=== PATIENT | male | born 1980 | race Caucasian/White ===

== ENCOUNTER 2016-10-24 14:35 | Emergency (ER) | payer OTHER ==
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
[2016-10-24 19:54] VITALS: BP 123/70
== END 2016-10-24 19:54 | disposition home or self-care (01) ==
LOC: ER 14:35
DX: S09.90XA Unspecified injury of head, initial encounter (principal); S16.1XXA Strain of muscle, fascia and tendon at neck level, initial encounter; R11.10 Vomiting, unspecified; V49.9XXA Car occupant (driver) (passenger) injured in unspecified traffic accident, initial encounter; F17.200 Nicotine dependence, unspecified, uncomplicated; Z87.820 Personal history of traumatic brain injury
CPT/HCPCS: 70450; 72125; 99283

== ENCOUNTER 2017-08-22 17:15 | Emergency (ER) | payer OTHER ==
--- NOTE | 2017-08-22 17:35 | ER Document Report ---
ED Medical Screen (RME) - General Chief Complaint: Suicidal Ideation Stated Complaint: SUICIDAL IDEATION Time Seen by Provider: 08/22/17 17:34 Notes: Patient states that he is having thoughts of wanting to kill himself. He states he has tried to do this several times before. He states he always come to the hospital before he gets to the point where he feels at the point of no return. He states he does not own any weapons. He denies any hallucinations. TRAVEL OUTSIDE OF THE [place] IN LAST 30 DAYS: No - Related Data Allergies/Adverse Reactions: No Known Allergies Allergy (Verified 08/22/17 17:19) Home Medications: Current Home Medications No Home Medications 08/22/17 [History] Past Medical History - Social History Frequency of alcohol use: None Drug Abuse: Cocaine, Marijuana, Prescription drugs Renal/ Medical History: Denies: Hx Peritoneal Dialysis Psychiatric Medical History: Reports: Hx Bipolar Disorder, Hx Depression, Hx Post Traumatic Stress Disorder Traumatic Medical History: Reports: Hx Traumatic Brain Injury Past Surgical History: Reports: Hx Orthopedic Surgery Physical Exam - Vital signs Vitals: Temp Pulse Resp BP Pulse Ox 99.4 F 95 16 139/90 H 97 08/22/17 17:19 08/22/17 17:19 08/22/17 17:19 08/22/17 17:19 08/22/17 17:19 Course - Vital Signs Vital signs: Temp Pulse Resp BP Pulse Ox 99.4 F 95 16 139/90 H 97 08/22/17 17:19 08/22/17 17:19 08/22/17 17:19 08/22/17 17:19 08/22/17 17:19
[2017-08-22 18:35] LABS: ABSOLUTE BASOPHILS # (AUTO) 0.1 10^3/uL (0.0-0.2); ABSOLUTE EOSINOPHILS # (AUTO) 0.2 10^3/uL (0.0-0.6); ABSOLUTE LYMPHOCYTES (AUTO) 2.3 10^3/uL (0.5-4.7); ABSOLUTE MONOCYTES (AUTO) 0.9 10^3/uL (0.1-1.4); ABSOLUTE NEUT (AUTO) 4.6 10^3/uL (1.7-8.2); BASOPHILS % (AUTO) 1.1 % (0-2); EOSINOPHILS % (AUTO) 2.1 % (0-6); HEMATOCRIT 48.3 % (37.9-51.0); HEMOGLOBIN 16.7 g/dL (13.5-17.0); HGB HCT DIFFERENCE 1.8; LYMPHOCYTES % (AUTO) 28.7 % (13-45); MEAN CORPUSCULAR HEMOGLOBIN 31.1 pg (27.0-33.4); MEAN CORPUSCULAR HGB CONC 34.6 g/dL (32.0-36.0); MEAN CORPUSCULAR VOLUME 90 fl (80-97); MONOCYTES % (AUTO) 10.8 % (3-13); RED BLOOD COUNT 5.39 10^6/uL (4.35-5.55); RED CELL DISTRIBUTION WIDTH 12.5 % (11.5-14.0); SEGMENTED NEUTROPHILS % (AUTO) 57.3 % (42-78)
[2017-08-22] MEDS ORDERED: HALOPERIDOL 5 MG TABLET PO ONE (18:57)
[2017-08-22 18:58] LABS: ALANINE AMINOTRANSFERASE 27 U/L (21-72); ALBUMIN 4.9 g/dL (3.5-5.0); ALKALINE PHOSPHATASE 84 U/L (38-126); ANION GAP 14 (5-19); ASPARTATE AMINO TRANSFERASE 24 U/L (17-59); BILIRUBIN,DIRECT 0.4 mg/dL (0.0-0.4); BILIRUBIN,TOTAL 0.9 mg/dL (0.2-1.3); BLOOD UREA NITROGEN 16 mg/dL (7-20); CALCIUM 9.8 mg/dL (8.4-10.2); CARBON DIOXIDE 30 mmol/L (22-30); CHLORIDE 101 mmol/L (98-107); CREATININE RESULT 1.13 mg/dL (0.52-1.25); GLUCOSE 95 mg/dL (75-110); POTASSIUM 4.2 mmol/L (3.6-5.0); SODIUM 144.9 mmol/L (137-145); TOTAL PROTEIN 8.2 g/dL (6.3-8.2)
[2017-08-22 19:01] LABS: ALCOHOL < 10 mg/dL (NONE DETECTED)
--- NOTE | 2017-08-22 19:01 | ER Document Report ---
ED Psych Disorder / Suicide - General Chief Complaint: Suicidal Ideation Stated Complaint: SUICIDAL IDEATION Time Seen by Provider: 08/22/17 17:34 Notes: The patient is a 37-year-old male, past medical history severe depression, presents with thoughts of wanting to kill himself. He has not unable to sleep for 3 days and has been on a cocaine, Percocet and Xanax binge. He has had thoughts of hurting himself several times before, but he has always gone to the hospital prior to actually attempting any suicide. He does not own any weapons does not have hallucinations. Patient is not on any current medications, but has been on multiple psychiatric medications in the past. He denies fevers, neck stiffness, chest pain, shortness of breath, nausea, vomiting, abdominal pain or back pain. TRAVEL OUTSIDE OF THE [place] IN LAST 30 DAYS: No - Related Data Allergies/Adverse Reactions: No Known Allergies Allergy (Verified 08/22/17 17:19) Home Medications: Current Home Medications No Home Medications 08/22/17 [History] Past Medical History - General Information source: Patient - Social History Smoking Status: Current Every Day Smoker Frequency of alcohol use: None Drug Abuse: Cocaine, Marijuana, Prescription drugs Family History: Reviewed & Not Pertinent Patient has suicidal ideation: Yes Patient has homicidal ideation: No Renal/ Medical History: Denies: Hx Peritoneal Dialysis Psychiatric Medical History: Reports: Hx Bipolar Disorder, Hx Depression, Hx Post Traumatic Stress Disorder Traumatic Medical History: Reports: Hx Traumatic Brain Injury Past Surgical History: Reports: Hx Orthopedic Surgery Review of Systems - Review of Systems Notes: REVIEW OF SYSTEMS: CONSTITUTIONAL: -fevers, -chills EENT: -eye pain, -difficulty swallowing, -nasal congestion CARDIOVASCULAR:-chest pain, -syncope. RESPIRATORY: -cough, -SOB GASTROINTESTINAL: -abdominal pain, - nausea, -vomiting, -diarrhea GENITOURINARY: -dysuria, -hematuria MUSCULOSKELETAL: -back pain, -neck pain SKIN: -rash or skin lesions. HEMATOLOGIC: -easy bruising or bleeding. LYMPHATIC: -swollen, enlarged glands. NEUROLOGICAL: -altered mental status or loss of consciousness, -headache, - neurologic symptoms PSYCHIATRIC: -anxiety, +depression, +SI ALL OTHER SYSTEMS REVIEWED AND NEGATIVE. Physical Exam - Vital signs Vitals: Temp Pulse Resp BP Pulse Ox 99.4 F 95 16 139/90 H 97 08/22/17 17:19 08/22/17 17:19 08/22/17 17:19 08/22/17 17:19 08/22/17 17:19 - Notes Notes: PHYSICAL EXAMINATION: GENERAL: Well-appearing, well-nourished and in no acute distress. HEAD: Atraumatic, normocephalic. EYES: Pupils equal round and reactive to light, extraocular movements intact, sclera anicteric, conjunctiva are normal. ENT: nares patent, oropharynx clear without exudates. Moist mucous membranes. NECK: Normal range of motion, supple without lymphadenopathy LUNGS: Breath sounds clear to auscultation bilaterally and equal. No wheezes rales or rhonchi. HEART: Regular rate and rhythm without murmurs ABDOMEN: Soft, nontender, normoactive bowel sounds. No guarding, no rebound. No masses appreciated. EXTREMITIES: Normal range of motion, no pitting or edema. No cyanosis. NEUROLOGICAL: Cranial nerves grossly intact. Normal speech, normal gait. Normal sensory and motor exams. PSYCH: Depressed mood. SKIN: Warm, Dry, normal turgor, no rashes or lesions noted. Course - Re-evaluation Re-evalutation: 08/22/17 19:00 Pt in the ER with his . He is expressing suicidal thoughts after 3 days not be able to sleep and polysubstance abuse. He agrees to stay in the ER to talk to mental health in the morning. Will provide p.o. Haldol to help some of his symptoms. - Vital Signs Vital signs: Temp Pulse Resp BP Pulse Ox 99.4 F 95 16 139/90 H 97 08/22/17 17:19 08/22/17 17:19 08/22/17 17:19 08/22/17 17:19 08/22/17 17:19 - Laboratory Result Diagrams: 08/22/17 18:14 08/22/17 18:14 Discharge - Discharge Clinical Impression: Suicidal thoughts, Polysubstance abuse Condition: Stable Disposition: PSYCH HOSP/UNIT
--- NOTE | 2017-08-22 21:08 | EKG REPORT ---
SEVERITY:- OTHERWISE NORMAL ECG - SINUS ARRHYTHMIA, RATE [id number] : Confirmed by: Arabella Pepe MD 22-Aug-2017 21:08:12
[2017-08-22] MEDS ORDERED: DIPHENHYDRAMINE HCL 50 MG CAPSULE PO ONE (22:40)
[2017-08-22] MEDS ORDERED: ACETAMINOPHEN 325 MG TABLET PO ONE (23:57)
[2017-08-23] MEDS ORDERED: LORAZEPAM INJ 2 MG/1 ML VIAL IM ONE (00:22)
[2017-08-23 08:14] LABS: APPEARANCE,URINE CLEAR; BILIRUBIN,URINE NEGATIVE (NEGATIVE); GLUCOSE, URINE NEGATIVE (NEGATIVE); KETONES,URINE NEGATIVE (NEGATIVE); LEUKOCYTE ESTERASE,URINE NEGATIVE (NEGATIVE); NITRITE,URINE NEGATIVE (NEGATIVE); PROTEIN,URINE 30 mg/dL (NEGATIVE); URINE SPECIFIC GRAVITY 1.034; UROBILINOGEN,URINE NEGATIVE mg/dL (<2.0)
[2017-08-23 08:29] LABS: URINE BARBITURATES SCREEN NEGATIVE; URINE METHADONE SCREEN NEGATIVE; URINE OPIATES LOW NEGATIVE; URINE PHENCYCLIDINE SCREEN NEGATIVE
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
[2017-08-23] MEDS ORDERED: ACETAMINOPHEN 325 MG TABLET PO ONE (13:29)
[2017-08-23] MEDS ORDERED: FLUOXETINE HCL 20 MG CAPSULE PO ONE (14:57)
[2017-08-23] MEDS ORDERED: OLANZAPINE 5 MG TABLET PO SCH (18:00)
[2017-08-23] MEDS ORDERED: BUSPIRONE HCL 10 MG TABLET PO SCH (18:00)
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
[2017-08-23] MEDS ORDERED: LIDOCAINE 5% (700 MG) TRANSDERMAL ADH..PATCH TP ONE (20:35)
[2017-08-23 21:20] VITALS: BP 135/74
[2017-08-23] MEDS ORDERED: CLONIDINE HCL 0.1 MG TABLET PO SCH (22:00)
== END 2017-08-24 00:41 ==
LOC: ER 17:15
DX: R45.851 Suicidal ideations (principal); F19.10 Other psychoactive substance abuse, uncomplicated; F32.9 Major depressive disorder, single episode, unspecified; Z79.899 Other long term (current) drug therapy; F17.200 Nicotine dependence, unspecified, uncomplicated
CPT/HCPCS: 36415; 80053; 80307; 81001; 85025; 93005; 93010; 96372; 99285

== ENCOUNTER 2017-08-26 15:08 | Emergency (ER) | payer SELFPAY ==
--- NOTE | 2017-08-26 16:49 | ER Document Report ---
ED Psych Disorder / Suicide <ROXANA STARR - Last Filed: 08/26/17 17:36> - General TRAVEL OUTSIDE OF THE [place] IN LAST 30 DAYS: No - HPI Patient complains to provider of: No: Aggression, Agitated, Bizarre behavior, Hallucinating, Homicidal ideation, Homicidal plan, Homicidal attempt, Overdose, Suicidal ideation, Suicidal plan, Suicidal attempt, Self injury, Other Quality of pain: No pain Pain Level: Denies <SUKI SHEA - Last Filed: 08/26/17 17:46> - General Chief Complaint: Psych Problem Stated Complaint: PSYCHE EVAL Time Seen by Provider: 08/26/17 15:54 Notes: This is a 37-year-old male that I saw the other day for mental health evaluation. Apparently after I left patient decided to walk out of the ER as well. Patient was on involuntary commitment paperwork. Has been at home. Please inform him that he was on papers and they can either bring him in by police vehicle or he could come in by himself. Decided to come on in. States that he is no longer suicidal, homicidal, angry or any other complaints. States that he has been off of the narcotics now for approximately 4 days and feels much better. Admits to having a history of bipolar disorder. Does not like the way it makes him feel when he is on mood stabilizers but realizes that he may need to be on them. States that he has a follow-up scheduled for Monday at the [facility] in [facility]. Is going to get him involved in drug and alcohol treatment program as well as counseling. Does not feel like he needs to be here but is cooperative at this time. (SUKI SHEA) - Related Data Allergies/Adverse Reactions: No Known Allergies Allergy (Verified 08/26/17 15:33) Home Medications: Current Home Medications Alprazolam [Xanax 0.25 mg Tablet] 0.25 mg PO Q12 08/26/17 [History] Past Medical History - General Information source: Patient - Social History Smoking Status: Current Every Day Smoker Cigarette use (# per day): Yes Frequency of alcohol use: Occasional Drug Abuse: Cocaine, Marijuana Lives with: Spouse/Significant other Family History: Reviewed & Not Pertinent Renal/ Medical History: Denies: Hx Peritoneal Dialysis Psychiatric Medical History: Reports: Hx Bipolar Disorder, Hx Depression, Hx Post Traumatic Stress Disorder Traumatic Medical History: Reports: Hx Traumatic Brain Injury Past Surgical History: Reports: Hx Orthopedic Surgery <SUKI SHEA - Last Filed: 08/26/17 17:46> Review of Systems - Review of Systems Constitutional: No symptoms reported EENT: No symptoms reported Cardiovascular: No symptoms reported Respiratory: No symptoms reported Gastrointestinal: No symptoms reported Genitourinary: No symptoms reported Male Genitourinary: No symptoms reported Musculoskeletal: No symptoms reported Skin: No symptoms reported Hematologic/Lymphatic: No symptoms reported Neurological/Psychological: No symptoms reported <SANTIAGO SHEAIC Gelacio - Last Filed: 08/26/17 17:46> Physical Exam - Vital signs Interpretation: Normal - General General appearance: Appears well, Alert - HEENT Head: Normocephalic, Atraumatic Eyes: Normal Pupils: PERRL - Respiratory Respiratory status: No respiratory distress Chest status: Nontender Breath sounds: Normal Chest palpation: Normal - Cardiovascular Rhythm: Regular Heart sounds: Normal auscultation Murmur: No - Abdominal Inspection: Normal Distension: No distension Bowel sounds: Normal Tenderness: Nontender Organomegaly: No organomegaly - Back Back: Normal, Nontender - Extremities General upper extremity: Normal inspection, Nontender, Normal color, Normal ROM , Normal temperature General lower extremity: Normal inspection, Nontender, Normal color, Normal ROM , Normal temperature, Normal weight bearing. No: Ken's sign - Neurological Neuro grossly intact: Yes Cognition: Normal Orientation: AAOx4 Char Coma Scale Eye Opening: Spontaneous [place] Coma Scale Verbal: Oriented [place] Coma Scale Motor: Obeys Commands [place] Coma Scale Total: 15 Speech: Normal Motor strength normal: LUE, RUE, LLE, RLE Sensory: Normal - Psychological Associated symptoms: Normal affect, Normal mood - Skin Skin Temperature: Warm Skin Moisture: Dry Skin Color: Normal <SUKI SHEA - Last Filed: 08/26/17 17:46> - Vital signs Vitals: Temp Pulse Resp BP Pulse Ox 98.2 F 75 16 147/79 H 98 08/26/17 15:26 08/26/17 15:26 08/26/17 15:26 08/26/17 15:26 08/26/17 15:26 Course - Laboratory Result Diagrams: 08/26/17 17:10 08/26/17 17:10 <ROXANA STARR Last Filed: 08/26/17 17:36> - Laboratory Result Diagrams: 08/26/17 17:10 08/26/17 17:10 <SUKI SHEA - Last Filed: 08/26/17 17:46> - Re-evaluation Re-evalutation: 08/26/17 16:48 Patient is well-appearing in no acute distress at this time. And currently in my professional opinion I do not think the patient meets criteria for involuntary commission. Patient has give me a clear plan of action of his treatment course. Realizes the ramifications of his drug and alcohol abuse. Is not suicidal or homicidal. Seems to have a rather to believe stable mood at this time. We will have mental health evaluate patient as well but in my opinion patient is safe to go home at this time. 08/26/17 17:18 Mental health team is seen patient. Recommend resending IVC paperwork at this time. I concur. Will DC at this time. (SUKI SHEA) - Vital Signs Vital signs: Temp Pulse Resp BP Pulse Ox 98.2 F 74 16 147/79 H 98 08/26/17 15:26 08/26/17 15:45 08/26/17 15:26 08/26/17 15:26 08/26/17 15:26 - Laboratory Laboratory results interpreted by me: 08/26/17 16:58 Urine Ascorbic Acid 20 H Discharge <ROXANA STARR - Last Filed: 08/26/17 17:36> <SUKI SHEA - Last Filed: 08/26/17 17:46> - Discharge Clinical Impression: Substance abuse, Posttraumatic stress disorder, Polysubstance abuse, Suicidal thoughts Condition: Stable Disposition: HOME, SELF-CARE Additional Instructions: SUICIDAL IDEATION: Suicidal ideation is a common medical term for thoughts about suicide, which may be as detailed as a formulated plan, without the suicidal act itself. Although most people who undergo suicidal ideation do not commit suicide, some go on to make suicide attempts. The range of suicidal ideation varies greatly from fleeting to detailed planning, role playing, and unsuccessful attempts. While thoughts about suicide are common, most people do not carry out serious actions to commit suicide. Based upon your evaluation and discussion with you, we do not believe you are currently at risk to act upon your thoughts of suicide. You have agreed to return to the Emergency Department, at any time , if you feel inclined to act upon your suicidal thoughts. HOMICIDAL IDEATION: Homicidal ideation is a common medical term for thoughts about homicide, which may be as detailed as a formulated plan, without the homicidal act itself. Although most people who undergo homicidal ideation do not commit homicide, some go on to make homicide attempts. The range of homicidal ideation varies greatly from fleeting to detailed planning, role playing, and unsuccessful attempts. While thoughts about homicide are common, most people do not carry out serious actions to commit homicide. Based upon your evaluation and discussion with you , we do not believe you are currently at risk to act upon your thoughts of homicide. You have agreed to return to the Emergency Department, at any time, if you feel inclined to act upon your homicidal thoughts. Bipolar Disorder: Some of these symptoms and expressed behaviors are seen with PTSD Bipolar disorder is also called manic-depressive disorder. Depression alternates with brain hyperactivity called alia. Each phase lasts from several days to a few weeks. We don't know exactly what causes bipolar disorder , but it's treatable. During the "manic phase," you may feel elated and energetic. You may have racing thoughts, rapid speech, increased activity, and grandiose ideas. During this time, you may not realize how poor your judgement is. Inappropriate spending, drug abuse, excessive alcohol use, marriage problems, and irresponsible sexual behavior are common during the manic phase. During the "depressive phase," you might feel depressed, guilty, worthless , fatigued, and unable to concentrate. You might have thoughts of suicide. Good treatments are available for bipolar disorder. [place] is a classic drug for bipolar disorder, and is still often useful. If the manic phase is very mild, an antidepressant alone can be prescribed. If the manic phase is very severe, an antipsychotic medicine (such as Haldol) may be needed. The treatment must be matched to your symptoms, so it's important to work closely with your psychiatric care provider. Contact your physician, the hospital emergency center, crisis line, or your counsellor if you are losing control or having self-destructive thoughts. COCAINE ABUSE: Cocaine causes many dangerous medical problems. Problems can occur even with "usual" amounts. Cocaine affects judgement, creating a sense of invulnerability. Cocaine users often make bad decisions that seem "great" at the time. Most cocaine users eventually will be hurt by bad job performance, damaged personal relations, crime, and unsafe sexual practices. Toxic effects of cocaine can include seizures, hallucinations, delusions, high blood pressure, heart damage, or sudden . There's always the risk of a "bad batch." But heart attacks, brain hemorrhages, or cardiac arrest can occur unpredictably even with "normal" use. Injection of cocaine is risky for abscesses, endocarditis (heart infection) , pneumonia, and AIDS. Withdrawal from cocaine often causes anxiety and drug cravings. Some users become paranoid and psychotic. Many treatment programs are available, but you must make the decision to quit. Medication can be prescribed to control the symptoms of cocaine toxicity (beta blockers or benzodiazepines). Withdrawal symptoms may require tranquilizers. FOLLOW-UP CARE: If you have been referred to the [facility] as a walk in first thing Monday (08/28/2017) morning. The [facility] team obtained verbal consent and it is continuity of care to provide the [facility] with information regarding this visit. Left a voice mail for Ely, one of the nurses at the [facility] for care coordination. If you experience worsening or a significant change in your symptoms, notify the physician immediately, call either of the mobile crisis numbers or return to the Emergency Department at any time for re-evaluation. Referrals: [facility] [Provider Group] - 08/28/17 9:00 am
[2017-08-26 17:44] LABS: ABSOLUTE BASOPHILS # (AUTO) 0.1 10^3/uL (0.0-0.2); ABSOLUTE EOSINOPHILS # (AUTO) 0.1 10^3/uL (0.0-0.6); ABSOLUTE LYMPHOCYTES (AUTO) 2.7 10^3/uL (0.5-4.7); ABSOLUTE MONOCYTES (AUTO) 0.7 10^3/uL (0.1-1.4); ABSOLUTE NEUT (AUTO) 3.9 10^3/uL (1.7-8.2); BASOPHILS % (AUTO) 1.1 % (0-2); HEMATOCRIT 42.3 % (37.9-51.0); HEMOGLOBIN 14.7 g/dL (13.5-17.0); HGB HCT DIFFERENCE 1.8; MEAN CORPUSCULAR HEMOGLOBIN 31.4 pg (27.0-33.4); MEAN CORPUSCULAR HGB CONC 34.7 g/dL (32.0-36.0); MEAN CORPUSCULAR VOLUME 90 fl (80-97); MONOCYTES % (AUTO) 9.7 % (3-13); RED BLOOD COUNT 4.68 10^6/uL (4.35-5.55); RED CELL DISTRIBUTION WIDTH 12.5 % (11.5-14.0); SEGMENTED NEUTROPHILS % (AUTO) 51.2 % (42-78); WHITE BLOOD COUNT 7.5 10^3/uL (4.0-10.5)
[2017-08-26 17:45] LABS: APPEARANCE,URINE CLEAR; BILIRUBIN,URINE NEGATIVE (NEGATIVE); GLUCOSE, URINE NEGATIVE (NEGATIVE); KETONES,URINE NEGATIVE (NEGATIVE); LEUKOCYTE ESTERASE,URINE NEGATIVE (NEGATIVE); NITRITE,URINE NEGATIVE (NEGATIVE); PROTEIN,URINE NEGATIVE (NEGATIVE); URINE SPECIFIC GRAVITY 1.018; UROBILINOGEN,URINE NEGATIVE mg/dL (<2.0)
[2017-08-26 17:59] LABS: URINE BARBITURATES SCREEN NEGATIVE; URINE METHADONE SCREEN NEGATIVE; URINE OPIATES LOW NEGATIVE; URINE PHENCYCLIDINE SCREEN NEGATIVE
[2017-08-26 18:02] LABS: ALANINE AMINOTRANSFERASE 31 U/L (21-72); ALBUMIN 4.4 g/dL (3.5-5.0); ALKALINE PHOSPHATASE 76 U/L (38-126); ANION GAP 12 (5-19); ASPARTATE AMINO TRANSFERASE 23 U/L (17-59); BILIRUBIN,DIRECT 0.4 mg/dL (0.0-0.4); BILIRUBIN,TOTAL 0.6 mg/dL (0.2-1.3); BLOOD UREA NITROGEN 14 mg/dL (7-20); CALCIUM 9.3 mg/dL (8.4-10.2); CARBON DIOXIDE 31 mmol/L (22-30); CHLORIDE 104 mmol/L (98-107); CREATININE RESULT 0.95 mg/dL (0.52-1.25); GLUCOSE 86 mg/dL (75-110); POTASSIUM 4.1 mmol/L (3.6-5.0); SODIUM 146.6 mmol/L (137-145); TOTAL PROTEIN 7.3 g/dL (6.3-8.2)
[2017-08-26 18:03] LABS: ALCOHOL < 10 mg/dL (NONE DETECTED)
[2017-08-26 18:07] VITALS: BP 149/91
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
--- NOTE | 2017-08-28 06:02 | EKG REPORT ---
SEVERITY:- NORMAL ECG - SINUS RHYTHM : Confirmed by: Arabella Pepe MD 28-Aug-2017 06:02:17
== END 2017-08-26 18:07 | disposition home or self-care (01) ==
LOC: ER 15:08
DX: F43.10 Post-traumatic stress disorder, unspecified (principal); R45.851 Suicidal ideations; F19.10 Other psychoactive substance abuse, uncomplicated; F17.210 Nicotine dependence, cigarettes, uncomplicated; Z87.820 Personal history of traumatic brain injury
CPT/HCPCS: 36415; 80053; 80307; 81001; 85025; 93005; 93010; 99285

== ENCOUNTER 2019-02-05 11:37 | Emergency (ER) | payer OTHER ==
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
[2019-02-05 12:42] LABS: APPEARANCE,URINE CLEAR; BILIRUBIN,URINE NEGATIVE (NEGATIVE); COLOR,URINE YELLOW; GLUCOSE, URINE NEGATIVE (NEGATIVE); KETONES,URINE NEGATIVE (NEGATIVE); LEUKOCYTE ESTERASE,URINE NEGATIVE (NEGATIVE); NITRITE,URINE NEGATIVE (NEGATIVE); PROTEIN,URINE NEGATIVE (NEGATIVE); UROBILINOGEN,URINE NEGATIVE mg/dL (<2.0)
[2019-02-05 12:45] LABS: ABSOLUTE LYMPHOCYTES (AUTO) 1.9 10^3/uL (0.5-4.7); ABSOLUTE MONOCYTES (AUTO) 0.5 10^3/uL (0.1-1.4); ABSOLUTE NEUT (AUTO) 5.8 10^3/uL (1.7-8.2); BASOPHILS % (AUTO) 0.5 % (0-2); EOSINOPHILS % (AUTO) 0.3 % (0-6); HEMATOCRIT 43.7 % (37.9-51.0); HEMOGLOBIN 15.1 g/dL (13.5-17.0); LYMPHOCYTES % (AUTO) 22.9 % (13-45); MEAN CORPUSCULAR HEMOGLOBIN 31.1 pg (27.0-33.4); MEAN CORPUSCULAR HGB CONC 34.6 g/dL (32.0-36.0); MEAN CORPUSCULAR VOLUME 90 fl (80-97); MONOCYTES % (AUTO) 6.4 % (3-13); PLATELET COUNT 226 10^3/uL (150-450); RED BLOOD COUNT 4.87 10^6/uL (4.35-5.55); RED CELL DISTRIBUTION WIDTH 13.3 % (11.5-14.0); SEGMENTED NEUTROPHILS % (AUTO) 69.9 % (42-78); TOTAL CELLS COUNTED % (AUTO) 100 %; WHITE BLOOD COUNT 8.2 10^3/uL (4.0-10.5)
[2019-02-05 12:55] LABS: URINE AMPHETAMINES SCREEN NEGATIVE; URINE BARBITURATES SCREEN NEGATIVE; URINE BENZODIAZEPINES SCREEN NEGATIVE; URINE COCAINE SCREEN NEGATIVE; URINE MARIJUANA (THC) SCREEN UNCONFIRMED POSITIVE; URINE METHADONE SCREEN NEGATIVE; URINE PHENCYCLIDINE SCREEN NEGATIVE
[2019-02-05 13:05] LABS: ALANINE AMINOTRANSFERASE 41 U/L (21-72); ALBUMIN 4.4 g/dL (3.5-5.0); ALKALINE PHOSPHATASE 75 U/L (38-126); ANION GAP 8 (5-19); ASPARTATE AMINO TRANSFERASE 35 U/L (17-59); BILIRUBIN,DIRECT 0.3 mg/dL (0.0-0.4); BILIRUBIN,TOTAL 0.8 mg/dL (0.2-1.3); BLOOD UREA NITROGEN 9 mg/dL (7-20); CALCIUM 9.5 mg/dL (8.4-10.2); CARBON DIOXIDE 28 mmol/L (22-30); CHLORIDE 107 mmol/L (98-107); GLUCOSE 104 mg/dL (75-110); SODIUM 142.9 mmol/L (137-145); TOTAL PROTEIN 7.6 g/dL (6.3-8.2)
[2019-02-05 13:08] LABS: ACETAMINOPHEN < 10 ug/mL (10-30); ALCOHOL < 10 mg/dL (NONE DETECTED); SALICYLATE < 1.0 mg/dL (2.0-20.0)
[2019-02-05] MEDS ORDERED: DEXAMETHASONE SOD PHOS INJ 10 MG/1 ML VIAL IM ONE (14:11)
[2019-02-05] MEDS ORDERED: KETOROLAC TROMETHAMINE 60 MG/2 ML SDV IM ONE (14:11)
[2019-02-05] MEDS ORDERED: METHOCARBAMOL 750 MG TABLET PO ONE (14:11)
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
--- NOTE | 2019-02-05 15:23 | RADIOLOGY REPORT (SQ) ---
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 NUMBER OF VIEWS: Two views. TECHNIQUE: AP and lateral views of the orbits. LIMITATIONS: None. FINDINGS: ORBITS: No fracture. No foreign body. SINUSES: No mucosal thickening. No air fluid levels. FACIAL BONES: No fracture. OTHER: No other significant finding. IMPRESSION: NEGATIVE STUDY OF THE ORBITS. NO RADIO-OPAQUE FOREIGN BODY. THE PATIENT IS CLEARED FOR MRI SCANNING. TECHNICAL DOCUMENTATION: JOB ID: [id number] [employer]- All Rights Reserved Reading location - IP/workstation name: [email or web address]
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
[2019-02-05 16:37] VITALS: BP 130/80
--- NOTE | 2019-02-05 16:40 | RADIOLOGY REPORT (SQ) ---
EXAM DESCRIPTION: MRI LUMBAR SPINE WITHOUT COMPLETED DATE/TIME: 02/05/2019 4:29 pm REASON FOR STUDY: Low back pain right leg radiculopathy COMPARISON: None. TECHNIQUE: Sagittal and Axial imaging includes T1, T2, STIR and gradient echo sequences. Coronal T2/ HASTE imaging. LIMITATIONS: None. FINDINGS: VISUALIZED UPPER ABDOMEN: Limited evaluation. No acute or suspicious findings suggested. SEGMENTATION: No transitional anatomy. The lowest well-developed disc space is labeled L5-S1. ALIGNMENT: Anatomic. VERTEBRAE: Intact. BONE MARROW: Normal. No marrow replacement or reactive changes. DISC SIGNAL: Decreased T2 weighted intervertebral disc signal at L5-S1 POSTERIOR ELEMENTS: Generally intact. No pars defect evident. HARDWARE: None in the spine. CORD AND CONUS: Normal in size and signal intensity. Conus at the T12-L1 level. SOFT TISSUES: No aortic aneurysm seen. No bulky retroperitoneal adenopathy or mass. No paraspinal mas s or fluid. L1-L2: Mild bilateral facet and ligament hypertrophy. No disc protrusion or significant central or foraminal stenosis. L2-L3: Mild bilateral facet and ligament hypertrophy. No disc protrusion or significant central or f oraminal stenosis. L3-L4: Mild bilateral facet and ligament hypertrophy. No disc protrusion or significant central or f oraminal stenosis. L4-L5: Mild bilateral facet and ligament hypertrophy. No disc protrusion or significant central or f oraminal stenosis. L5-S1: Moderate-sized right paracentral disc herniation with extruded material extending inferiorly i n the rightward spinal canal. This flattens the right S1 nerve root as it exits the thecal sac on ax ial T2 images 35-37, and sagittal T2 images 6-8. Elsewhere at L5-S1, there is mild bilateral facet hypertrophy without central canal stenosis. Mild b ilateral inferior foraminal narrowing is present without exit L5 nerve root impingement. LOWER THORACIC: Incompletely imaged. No stenosis seen. SACRUM: Visualized upper sacrum intact. OTHER: No other significant findings. IMPRESSION: Moderate size right paracentral disc herniation at L5-S1, with extruded material extendi ng inferiorly in the rightward spinal canal. This flattens the right S1 nerve root in the lateral re cess TECHNICAL DOCUMENTATION: JOB ID: [id number] [employer]- All Rights Reserved Reading location - IP/workstation name: [email or web address]
--- NOTE | 2019-02-05 17:44 | EKG REPORT ---
SEVERITY:- ABNORMAL ECG - SINUS RHYTHM ABNRM R PROG, CONSIDER ASMI OR LEAD PLACEMENT : Confirmed by: Arabella Pepe MD 05-Feb-2019 17:42:46
== END 2019-02-05 17:11 | disposition left against medical advice (07) ==
LOC: ER 11:37
DX: F43.10 Post-traumatic stress disorder, unspecified (principal); R45.4 Irritability and anger; F12.20 Cannabis dependence, uncomplicated; R45.851 Suicidal ideations; G89.29 Other chronic pain; M54.9 Dorsalgia, unspecified; F17.200 Nicotine dependence, unspecified, uncomplicated; Z87.820 Personal history of traumatic brain injury
CPT/HCPCS: 93005; 99281; 96372; 36415; 80307 ×4; 85025; 80053; 81001; 72148; 70250; 93010; J1885; J3490; J1100

== ENCOUNTER 2019-03-07 15:35 | Emergency (ER) | payer OTHER ==
[2019-03-07 15:53] VITALS: BP 144/116
--- NOTE | 2019-03-07 16:07 | ER Document Report ---
ED Medical Screen (RME) - General Chief Complaint: Testicular Pain Stated Complaint: TESTICLE PAIN Time Seen by Provider: 03/07/19 15:40 Primary Care Provider: CHULA HOANG FNP [Primary Care Provider] - Follow up as needed Mode of Arrival: Ambulatory Information source: Patient Notes: Patient is a 38-year-old male presented to the emergency department chief complaint of left testicular pain. Patient reports pain has been going on for approximately 30 days. Patient initially thought he was having the pain because he had not had an ejaculation in quite some time. Patient reports he resolved this with his partner. He reports that the last 3 days the pain has returned and gotten significantly worse. He denies any swelling to the area. He does state the pain radiates over to the right testicle. Denies history of any direct trauma to the area. Patient is very tearful in triage stating that he hopes he has an STD and not a testicular torsion he has he wants to have another child with his new . Examination deferred until patient is in a room. I have greeted and performed a rapid initial assessment of this patient. A comprehensive ED assessment and evaluation of the patient, analysis of test results and completion of the medical decision making process will be conducted by additional ED providers. Dictation of this chart was performed using voice recognition software; therefore, there may be some unintended grammatical errors. TRAVEL OUTSIDE OF THE [place] IN LAST 30 DAYS: No - Related Data Allergies/Adverse Reactions: No Known Allergies Allergy (Verified 03/07/19 15:37) Past Medical History Renal/ Medical History: Denies: Hx Peritoneal Dialysis Psychiatric Medical History: Reports: Hx Bipolar Disorder, Hx Depression, Hx Post Traumatic Stress Disorder Traumatic Medical History: Reports: Hx Traumatic Brain Injury Past Surgical History: Reports: Hx Orthopedic Surgery Physical Exam - Vital signs Vitals: Temp Pulse Resp BP Pulse Ox 98.2 F 106 H 18 144/116 H 97 03/07/19 15:39 03/07/19 15:39 03/07/19 15:39 03/07/19 15:39 03/07/19 15:39 Course - Vital Signs Vital signs: Temp Pulse Resp BP Pulse Ox 98.2 F 106 H 18 144/116 H 97 03/07/19 15:39 03/07/19 15:39 03/07/19 15:39 03/07/19 15:39 03/07/19 15:39 Doctor's Discharge - Discharge Referrals: CHULA HOANG FNP [Primary Care Provider] - Follow up as needed
[2019-03-07 17:10] LABS: APPEARANCE,URINE CLEAR; BILIRUBIN,URINE NEGATIVE (NEGATIVE); COLOR,URINE YELLOW; GLUCOSE, URINE NEGATIVE (NEGATIVE); KETONES,URINE NEGATIVE (NEGATIVE); LEUKOCYTE ESTERASE,URINE NEGATIVE (NEGATIVE); NITRITE,URINE NEGATIVE (NEGATIVE); PROTEIN,URINE NEGATIVE (NEGATIVE); URINE SPECIFIC GRAVITY 1.019; UROBILINOGEN,URINE NEGATIVE mg/dL (<2.0)
[2019-03-07 18:36] LABS: CHLAM PCR NOT DETECTED (NOT DETECT); GON PCR NOT DETECTED (NOT DETECT)
== END 2019-03-07 17:40 | disposition left against medical advice (07) ==
LOC: ER 15:35
DX: N50.812 Left testicular pain (principal)
CPT/HCPCS: 81001; 87491; 87591; 99281

== ENCOUNTER 2019-03-08 01:09 | Emergency (ER) | payer OTHER ==
--- NOTE | 2019-03-08 01:54 | ER Document Report ---
ED Medical Screen (RME) - General Chief Complaint: Testicular Pain Stated Complaint: TESTICULAR PAIN Time Seen by Provider: 03/08/19 01:48 Primary Care Provider: CHULA HOANG FNP [Primary Care Provider] - Follow up as needed Mode of Arrival: Ambulatory Information source: Patient Notes: 38-year-old male presented to ED for complaint of testicular pain worse on the l eft. He was seen earlier today states he gave his urine but did not stay for the ultrasound. His urine from earlier was negative for GC and chlamydia and UA was negative. He states his testicles are red swollen and tender worse on the left. He states he got upset over something that happened in the waiting room and left. The pain was worse so he came back to be examined. Ultrasound has been reordered. I have greeted and performed a rapid initial assessment of this patient. A comprehensive ED assessment and evaluation of the patient, analysis of test results and completion of medical decision making process will be conducted by an additional ED providers. Dictation of this chart was performed using voice recognition software; therefore, there may be some unintended grammatical errors. TRAVEL OUTSIDE OF THE [place] IN LAST 30 DAYS: No - Related Data Allergies/Adverse Reactions: No Known Allergies Allergy (Verified 03/07/19 15:37) Past Medical History - Social History Chew tobacco use (# tins/day): No Frequency of alcohol use: Occasional Drug Abuse: None Renal/ Medical History: Denies: Hx Peritoneal Dialysis Psychiatric Medical History: Reports: Hx Bipolar Disorder, Hx Depression, Hx Post Traumatic Stress Disorder Traumatic Medical History: Reports: Hx Traumatic Brain Injury Past Surgical History: Reports: Hx Orthopedic Surgery Physical Exam - Vital signs Vitals: Temp Pulse Resp BP Pulse Ox 97.7 F 89 17 150/84 H 97 03/08/19 01:36 03/08/19 01:36 03/08/19 01:36 03/08/19 01:36 03/08/19 01:36 Course - Vital Signs Vital signs: Temp Pulse Resp BP Pulse Ox 97.7 F 89 17 150/84 H 97 03/08/19 01:36 03/08/19 01:36 03/08/19 01:36 03/08/19 01:36 03/08/19 01:36 Doctor's Discharge - Discharge Referrals: CHULA HOANG FNP [Primary Care Provider] - Follow up as needed
--- NOTE | 2019-03-08 03:30 | RADIOLOGY REPORT (SQ) ---
EXAM DESCRIPTION: US SCROTUM COMPLETED DATE/TME: 03/08/2019 01:49 CLINICAL HISTORY: 38 years Male, testicular pain wors on left Comparison: None. LIMITATIONS: None. FINDINGS: 1.3 cm x 0.6 x 0.6 irregular small left hydrocele and/or extratesticular cyst, likely benign. Small right hydrocele. 0.2 cm right epididymal cyst spermatocele. 4.7-cm right testis, 5.1-cm left testis, epididymides, and scrotal structures appear normal in size, shape, echotexture, and vascularity. No evidence of testicular mass. No evidence of testicular torsion IMPRESSION: 1. 1.3 cm mildly complicated left hydrocele and/or extratesticular cyst, likely benign. 2. Small right hydrocele. 3. Normal testes.
[2019-03-08] MEDS ORDERED: KETOROLAC TROMETHAMINE 60 MG/2 ML SDV IM ONE (04:27)
--- NOTE | 2019-03-08 04:28 | ER Document Report ---
ED GI/ - General Chief Complaint: Testicular Pain Stated Complaint: TESTICULAR PAIN Time Seen by Provider: 03/08/19 01:48 Mode of Arrival: Ambulatory Notes: Patient is a 38 year old male that comes to the emergency department for chief complaint of left testicular pain. He denies injury, he states symptoms started about 1 month ago but have been bothering him more over the past 3 days. He denies dysuria or discharge, he states he is monogamous with his . He denies history of the same. He reports past medical history of anxiety/depression, PTSD, TBI. TRAVEL OUTSIDE OF THE [place] IN LAST 30 DAYS: No - Related Data Allergies/Adverse Reactions: No Known Allergies Allergy (Verified 03/07/19 15:37) Past Medical History - General Information source: Patient - Social History Smoking Status: Current Every Day Smoker Chew tobacco use (# tins/day): No Smoking Education Provided: Yes - <3 min Frequency of alcohol use: Occasional Drug Abuse: None Lives with: Family Family History: Reviewed & Not Pertinent Patient has suicidal ideation: No Patient has homicidal ideation: No Renal/ Medical History: Denies: Hx Peritoneal Dialysis Psychiatric Medical History: Reports: Hx Bipolar Disorder, Hx Depression, Hx Post Traumatic Stress Disorder Traumatic Medical History: Reports: Hx Traumatic Brain Injury Past Surgical History: Reports: Hx Orthopedic Surgery - Immunizations Immunizations up to date: Yes Hx Diphtheria, Pertussis, Tetanus Vaccination: Yes Review of Systems - Review of Systems Constitutional: No symptoms reported EENT: No symptoms reported Cardiovascular: No symptoms reported Respiratory: No symptoms reported Gastrointestinal: No symptoms reported Genitourinary: No symptoms reported Male Genitourinary: See HPI Musculoskeletal: No symptoms reported Skin: No symptoms reported Hematologic/Lymphatic: No symptoms reported Neurological/Psychological: No symptoms reported Physical Exam - Vital signs Vitals: Temp Pulse Resp BP Pulse Ox 97.7 F 89 17 150/84 H 97 03/08/19 01:36 03/08/19 01:36 03/08/19 01:36 03/08/19 01:36 03/08/19 01:36 - Notes Notes: GENERAL: Alert, interacts well. No acute distress. HEAD: Normocephalic, atraumatic. EYES: Pupils equal, round, and reactive to light. Extraocular movements intact. ENT: Oral mucosa moist, tongue midline. Oropharynx unremarkable. Airway patent. LUNGS: Clear to auscultation bilaterally, no wheezes, rales, or rhonchi. No respiratory distress. HEART: Regular rate and rhythm. No murmur ABDOMEN: Soft, non-tender. Non-distended. Bowel sounds present in all 4 quadrants. GENITOURINARY: There is no erythema or noted swelling to the genitals, scrotum. There is a questionable mildly swollen area at the left testicle with some mild tenderness, however there is no erythema, fluctuance, induration, or bruising. Normal groin exam. Unremarkable examination otherwise. EXTREMITIES: Moves all 4 extremities spontaneously. No edema, normal radial and dorsalis pedis pulses bilaterally. No cyanosis. BACK: no cervical, thoracic, lumbar midline tenderness. No saddle anesthesia, normal distal neurovascular exam. Moves all extremities in full range of motion. NEUROLOGICAL: Alert and oriented x3. Normal speech. Cranial nerves II through XII grossly intact. PSYCH: Normal affect, normal mood. SKIN: Warm, dry, normal turgor. No rashes or lesions noted. Course - Re-evaluation Re-evalutation: Patient actually returned from earlier. Review of his urinalysis showed that this was normal along with negative gonorrhea and Chlamydia testing. Ultrasound has been performed, patient has normal cremasteric reflexes bilaterally, patient has no signs of infection on examination. Ultrasound shows suspected hydrocele versus cyst most likely on the left side, small hydrocele on the right. Good bl ood flow bilaterally. this is consistent with patient's exam. Patient will be placed on anti-inflammatories, instructed him on details of this, discussed results in detail as well, discussed urology follow-up and return precautions. Patient states satisfaction and agreement with plan. - Vital Signs Vital signs: Temp Pulse Resp BP Pulse Ox 97.7 F 74 20 137/81 H 96 03/08/19 04:35 03/08/19 04:35 03/08/19 04:35 03/08/19 04:35 03/08/19 04:35 Discharge - Discharge Clinical Impression: Testicular pain Condition: Stable Disposition: HOME, SELF-CARE Additional Instructions: Your urinalysis and testing for infections are negative. Your ultrasound shows a left-sided area which appears to be either a hydrocele or a cyst. You also have a small hydrocele on the right. This can resolve with time, I do recommend the anti-inflammatory medication, supportive underwear, and urology follow-up for additional management (either through your primary or call the listed referrals below). Return if you worsen including severe pain, swelling, vomiting, or any other concerning or worsening symptoms. [facility] [place] [phone] [facility] [address] [place], [place] [id number] Vicky Coffey MD Doctor in [place], [place] Address: [address] [place], [place] [address] [address] [place] [address] Prescriptions: Naproxen 500 mg PO BID PRN #20 tablet PRN Reason:
[2019-03-08 04:53] VITALS: BP 137/81
== END 2019-03-08 04:35 | disposition home or self-care (01) ==
LOC: ER 01:09
DX: N50.812 Left testicular pain (principal); F17.200 Nicotine dependence, unspecified, uncomplicated; Z87.820 Personal history of traumatic brain injury
CPT/HCPCS: 76870; 93976; 99284

== ENCOUNTER → 2019-12-25 | Outpatient (CLI) | payer MEDICARE, OTHER ==
--- NOTE | 2019-12-25 18:58 | RADIOLOGY REPORT (SQ) ---
EXAM DESCRIPTION: MRI LUMBAR SPINE WITHOUT COMPLETED DATE/TIME: 12/25/2019 6:40 pm REASON FOR STUDY: M54.5 LOW BACK PAIN M54.5 LOW BACK PAIN COMPARISON: 02/05/2019 TECHNIQUE: Sagittal and Axial imaging includes T1, T2, STIR and gradient echo sequences. Coronal T2/ HASTE imaging. LIMITATIONS: None. FINDINGS: VISUALIZED UPPER ABDOMEN: Limited evaluation. No acute or suspicious findings suggested. SEGMENTATION: No transitional anatomy. The lowest well-developed disc space is labeled L5-S1. ALIGNMENT: Anatomic. VERTEBRAE: Intact. BONE MARROW: Normal. No marrow replacement or reactive changes. DISC SIGNAL: Normal. No significant abnormal signal or loss of height. POSTERIOR ELEMENTS: Generally intact. No pars defect evident. HARDWARE: None in the spine. CORD AND CONUS: Normal in size and signal intensity. Conus at the appropriate level. SOFT TISSUES: No aortic aneurysm seen. No bulky retroperitoneal adenopathy or mass. No paraspinal mas s or fluid. L1-L2: No significant spinal stenosis or exit foraminal stenosis. L2-L3: No significant spinal stenosis or exit foraminal stenosis. L3-L4: No significant spinal stenosis or exit foraminal stenosis. L4-L5: No significant spinal stenosis or exit foraminal stenosis. L5-S1: Broad-based disc bulge with no significant disc protrusion. No central canal stenosis. The b ulging disc may contact the exiting nerve root outside of the right neural foramen. LOWER THORACIC: Incompletely imaged. No stenosis seen. SACRUM: Visualized upper sacrum intact. OTHER: No other significant findings. IMPRESSION: Disc bulge at L5-S1 may contact the exiting nerve root on the right outside of the neura l foramen. TECHNICAL DOCUMENTATION: JOB ID: [id number] [employer]- All Rights Reserved Reading location - IP/workstation name: [email or web address]
== END ==
LOC: RAD 17:00
PROVIDERS: ATTEND Family Medicine
DX: M51.87 Other intervertebral disc disorders, lumbosacral region (principal); M54.5 Low back pain
CPT/HCPCS: 72148